=== PATIENT | female | born 1985 | race Caucasian/White ===

== ENCOUNTER 2018-08-17 12:55 | Inpatient (IN) | payer OTHER, SELFPAY ==
[2018-08-17] MEDS ORDERED: Dexamethasone 20 MG/5 ML VIAL ONE (12:58)
[2018-08-17] MEDS ORDERED: Ketorolac Tromethamine 30 MG/ML VIAL ONE ×2 (12:58→18:50)
[2018-08-17] MEDS ORDERED: PHENYLEPHRINE-NS 100 MCG/ML 10 ML SYRINGE ONE ×2 (12:58→18:50)
[2018-08-17] MEDS ORDERED: diphenhydrAMINE 50 MG/ML VIAL ONE ×3 (12:58→20:04)
[2018-08-17] MEDS ORDERED: Ondansetron HCl/PF 4 MG/2 ML Vial ONE ×2 (12:58→18:50)
[2018-08-17 13:50] VITALS: BMI 34.7
[2018-08-17 15:15] LABS: Amnisure Internal Control QC ACCEPTABLE (ACCEPTABLE); Amnisure Test No Membranes Rupture (No Rupture)
[2018-08-17] MEDS ORDERED: Promethazine HCl 25 MG/ML VIAL IM PRN ×3 (17:15→23:05)
[2018-08-17] MEDS ORDERED: Lactated Ringer's 1,000 ML IV SCH (17:15)
[2018-08-17] MEDS ORDERED: Ondansetron HCl/PF 4 MG/2 ML Vial IVP PRN ×4 (17:15→23:05)
[2018-08-17] MEDS ORDERED: Bicitra 30 ML UDCUP PO SCH (17:30)
[2018-08-17] MEDS ORDERED: CEFAZOLIN/Water 2 GM/20 ML SYRINGE SLOW IVP SCH (17:30)
[2018-08-17 17:40] LABS: Hemoglobin 11.8 g/dL (12.0-16.0); Mean Corpuscular Hemoglobin 30.2 pg (27.0-31.0); Mean Corpuscular Volume 91.5 fL (78.0-98.0); Mean Platelet Volume 9.2 fL (7.4-10.4); Platelet Count 235 thou/uL (130-400); RBC Distribution Width 14.4 % (11.5-14.5); Red Blood Cell (RBC) Count 3.92 mill/uL (4.20-5.40); White Blood Cell (WBC) Count 12.7 thou/uL (4.8-10.8)
[2018-08-17 18:19] LABS: HBSAg Index 0.19 S/CO (0-0.99); Hep B Surf Ag Non-Reactive S/CO (NonReactive); Syphilis Antibody Nonreactive (Nonreactive); Syphilis Antibody Index 0.04 S/CO (<1.00 Non-Reactive)
[2018-08-17] MEDS ORDERED: Morphine PF 1 MG/ML SYR ONE (18:49)
[2018-08-17] MEDS ORDERED: Oxytocin 10 UNITS/ML VIAL ONE (18:50)
[2018-08-17] MEDS ORDERED: Lidocaine 1% PF 5 ML VIAL ONE (18:50)
[2018-08-17] MEDS ORDERED: Bupivacaine 0.75% W/DEXTROSE 8.25% 2 ML AMP ONE (18:50)
[2018-08-17] MEDS ORDERED: Dexamethasone 4 mg/ml Vial ONE (18:50)
[2018-08-17] MEDS ORDERED: Lidocaine 2% 10 ML INJ ONE (18:55)
[2018-08-17] MEDS ORDERED: Promethazine HCl 25 MG SUPP PR PRN (20:15)
[2018-08-17] MEDS ORDERED: Ketorolac Tromethamine 30 MG/ML VIAL IVP PRN (20:15)
[2018-08-17] MEDS ORDERED: Meperidine HCl/PF 25 MG/ML VIAL SLOW IVP PRN (20:15)
[2018-08-17] MEDS ORDERED: Naloxone HCl 0.4 mg/ml Vial IVP PRN ×2 (20:15)
[2018-08-17] MEDS ORDERED: HYDROmorphone 2 MG/ML VIAL SLOW IVP PRN (20:15)
[2018-08-17] MEDS ORDERED: diphenhydrAMINE 50 MG/ML VIAL IVP PRN (20:15)
[2018-08-17] MEDS ORDERED: Communication Order-Pharmacy FS SCH (20:15)
[2018-08-17] MEDS ORDERED: Eucerin (Mineral Oil/Petrolatum,White) 30 gm Jar TOP PRN (20:15)
[2018-08-17] MEDS ORDERED: Naloxone HCl 0.4 mg/ml Vial IV PRN (20:15)
[2018-08-17] MEDS ORDERED: Bisacodyl 10 MG SUPP PR PRN (23:05)
[2018-08-17] MEDS ORDERED: diphenhydrAMINE 25 MG CAP PO PRN (23:05)
[2018-08-17] MEDS ORDERED: NS / Oxytocin 40 units/1000ml 1,000 ML IV SCH (23:05)
[2018-08-17] MEDS ORDERED: Varicella virus, LIVE 0.5 ML VIAL SC ONE (23:05)
[2018-08-17] MEDS ORDERED: Adacel (T-DAP) 0.5 ML VIAL IM ONE (23:05)
[2018-08-17] MEDS ORDERED: Lanolin Ointment 7 GM TUBE TOP PRN (23:05)
[2018-08-17] MEDS ORDERED: Measles/Mumps/Rubella 10 MCG/0.5 ML VIAL SC ONE (23:05)
[2018-08-18] MEDS: Docusate Calcium (SURFAK) 240 MG CAP PO SCH ×3 (00:04→20:00)
[2018-08-18 06:32] LABS: Hemoglobin 10.3 g/dL (12.0-16.0); Mean Corpuscular HGB CONC 31.9 g/dL (32.0-36.0); Mean Corpuscular Hemoglobin 29.2 pg (27.0-31.0); Mean Corpuscular Volume 91.5 fL (78.0-98.0); Mean Platelet Volume 9.3 fL (7.4-10.4); Platelet Count 228 thou/uL (130-400); RBC Distribution Width 14.3 % (11.5-14.5); Red Blood Cell (RBC) Count 3.54 mill/uL (4.20-5.40); White Blood Cell (WBC) Count 18.5 thou/uL (4.8-10.8)
[2018-08-18] MEDS ORDERED: HYDROcodone/Acetaminophen 5/325 mg Tablet PO PRN ×2 (08:15)
[2018-08-18] MEDS: Simethicone Chewable 80 MG TAB PO PRN ×2 (13:39→20:00)
--- NOTE | 2018-08-18 18:44 | PDOC.LDHP ---
Labor and Delivery H&P Chief complaint: scheduled section HPI: Patient is a at 37w and 4 days, who was seen in clinic earlier today and had vertually no amniotic fluid (severe oligohydramnios with ELIZABETH of 1 cm). Current gestational age (weeks): 37 Due date: 09/03/18 Grav: 2 Para: 1 Current complications: oligohydramnios Abnormal US findings: No Current medications: pre- vitamins Previous surgical history: low tranverse CS Allergies/Adverse Reactions: Allergies Allergy/AdvReac Type Severity Reaction Status Date / Time penicillin G Allergy Severe Anaphylaxis Verified 08/17/18 13:51 Social history: none - Physical Exam Vital signs reviewed and normal: yes General: NAD Heart: RRR Lungs: CTAB Abdomen: gravid Extremeties: no edema FHT: category 1 - Assessment L&D Assessment: scheduled repeat section - Plan Plan: admit to L&D, to OR for section
--- NOTE | 2018-08-18 18:46 | PDOC.PP ---
Post Progress Note Post Day #: 1 PO intake tolerated: yes Flatus: yes Ambulation: yes Vital Signs (12 hours) Temp Pulse Resp BP Pulse Ox 08/18/18 17:02 97.6 F 97 20 115/74 08/18/18 11:27 98.2 F 96 20 107/66 08/18/18 07:45 98.0 F 97 16 100/64 96 Weight Weight 184 lb - Physical Examination Cardiovascular: no m/r/g Respiratory: clear to auscultation bilaterally Abdominal: + bowel sounds Extremities: negative homans (B) Skin: CS incision dry & intact Neurological: no gross focal deficits Psychiatric: A&Ox3 Result Diagrams: 08/18/18 05:14 Additional Labs: Post Labs Blood Type A POSITIVE 08/17/18 17:29 Hep Bs Antigen Non-Reactive S/CO (NonReactive) 08/17/18 17:29 - Assessment/Plan Patient is doing well today. Vitals/Blood count stable.
[2018-08-18] MEDS: Ibuprofen 800 MG TAB PO SCH (20:01)
[2018-08-19] MEDS: Ibuprofen 800 MG TAB PO SCH ×2 (05:56→14:04)
[2018-08-19] MEDS ORDERED: Ibuprofen 800 MG TAB PO SCH (06:00)
[2018-08-19 08:15] VITALS: BP 128/78; TEMP 97.9
[2018-08-19] MEDS: Docusate Calcium (SURFAK) 240 MG CAP PO SCH (09:19)
--- NOTE | 2018-08-19 13:52 | PDOC.PP ---
Post Progress Note Post Day #: 2 PO intake tolerated: yes Flatus: yes Ambulation: yes Vital Signs (12 hours) Temp Pulse Resp BP Pulse Ox 08/19/18 08:14 97.9 F 105 H 20 128/78 99 08/19/18 08:05 99 Weight Weight 184 lb - Physical Examination General: NAD Cardiovascular: no m/r/g Respiratory: clear to auscultation bilaterally Abdominal: + bowel sounds Extremities: negative homans (B) Neurological: no gross focal deficits Psychiatric: A&Ox3 Result Diagrams: 08/18/18 05:14 Additional Labs: Post Labs Blood Type A POSITIVE 08/17/18 17:29 Hep Bs Antigen Non-Reactive S/CO (NonReactive) 08/17/18 17:29 - Assessment/Plan Patient is doing very well, desires to be discharged home today.
--- NOTE | 2018-08-19 14:45 | OP ---
DATE OF SERVICE: 08/17/2018 PREOPERATIVE DIAGNOSES: Intrauterine at 37 weeks and 4 days with severe oligohydramnios. POSTOPERATIVE DIAGNOSES: Intrauterine at 37 weeks and 4 days with severe oligohydramnios. PROCEDURE: Repeat low transverse section. FINDINGS: Viable male weighing 3585 grams or 7 pounds 14 ounces, Apgars 9 and 9. Quantitativ e blood loss 307 mL. COMPLICATIONS: None. DETAILS OF THE PROCEDURE: The patient was consented and taken back to the operating room where spina l anesthesia was found to be adequate. She was then prepped and draped in the normal sterile fashion . A time out was performed by the entire operative team. The incision was then marked with a marking pen tested using sharp pickups. An incision was then made with a scalpel. The incision was carried through the adipose tissue down to the underlying rectus fascia using both sharp dissection as well as cautery. Once the fascia was identified, it was incised in the midline and then the fascial incis ion was carried through in both lateral directions using sharp as well as cautery dissection techniqu es. Next, the superior aspect of the rectus fascia was grasped with 2 Maren clamps which was tented up and the rectus muscles were dissected off using blunt dissection as well as cautery dissection. Similarly, the inferior aspect of the fascial incision was grasped with 2 Maren clamps, tented up an d the rectus muscles were dissected off bluntly as well as sharply. Next, the rectus muscles were se parated in the midline and the peritoneum identified. The peritoneum was then carefully grasped with two hemostats and entered sharply. The peritoneal incision was extended superiorly and inferiorly a nd bladder blade was placed in the lower abdomen. At this point, the uterus was identified and the b ladder flap was then developed using pickups with teeth as well as Metzenbaum scissors in both latera l directions. The bladder flap was then dissected downwards using the paper tube machine operator's finger as well as M etzenbaum scissors. The bladder blade was replaced. The lower uterine segment was then identified a nd entered sharply using a clean scalpel. The uterine incision was then dissected downwards until th in layer of muscle remained and this was entered bluntly using a hemostat to avoid any injury to the baby. The uterine incision was then stretched using two fingers in both lateral directions. An amniotomy was performed artificially using a hemostat and the baby was delivered using fundal pres sure in a gentle fashion. Once out, the baby's mouth and nose were bulb suctioned, cord clamped and cut, and the baby was handed to waiting attendants. Next, the uterus was exteriorized, cleared of al l clots and debris and the uterine incision was repaired with #1 Monocryl in a running locking fashio n. A second suture of the same type was used to obtain complete hemostasis at the uterine incision. The bladder flap was reapproximated using 3-0 Monocryl. Next, patient's left and right adnexa were inspected and appeared to be within normal limits. The posterior cul-de-sac was blotted dry and hemo stasis assured. One more look at the uterine incision demonstrated hemostasis. Next, the uterus was replaced back within the abdomen. The peritoneum was reapproximated using 2-0 Monocryl without diff iculty. The rectus muscles were then allowed to come back together and 0 chromic was used to aid in reapproximation of the muscle as necessary. The rectus fascia was then reapproximated in a running f ashion using 0 Vicryl suture. The adipose tissue was then examined and appeared to be well approxima zoraida without any obvious separations. Finally, the skin was reapproximated with 3-0 Monocryl on a Isidro th needle without difficulty and Dermabond adhesive was applied to the skin. Once the glue was dry, the drapes were removed and the patient was transferred to an ambulatory bed where she was taken to [facility] awake and in stable condition. Sponge, lap, and needle counts were correct x3.
== END 2018-08-19 14:35 | disposition home or self-care (01) | DRG 765 ==
LOC: L&D/OP 12:55 → L&D 16:18 → 3SW 22:49
PROVIDERS: ADMIT Obstetrics & Gynecology; ATTEND Obstetrics & Gynecology
PROC: 10D00Z1 Extraction of Products of Conception, Low, Open Approach (ICD-10-PCS; principal; 2018-08-17)
DX: O34.211 Maternal care for low transverse scar from previous cesarean delivery (principal); O41.03X0 Oligohydramnios, third trimester, not applicable or unspecified; Z3A.37 37 weeks gestation of pregnancy; Z37.0 Single live birth
CPT/HCPCS: 36415; 51702; 84112; 85027; 86780; 86850; 86900; 86901; 87340; J1100; J1200; J1885; J2001; J2274; J2405; J2590; J3490

== ENCOUNTER 2020-12-26 11:17 | Outpatient (CLI) | payer OTHER ==
--- NOTE | 2020-12-26 14:28 | RAD ---
SUPINE ABDOMEN: Indications: Hernia. Abdominal pain. FINDINGS: Scattered stool and gas throughout the colon. Small bowel gas pattern unremarkable. No mass effect or abnormal calcification. IMPRESSION: Unremarkable abdominal film. POS: AGW
== END 2020-12-26 11:18 | disposition home or self-care (01) ==
LOC: BICRAD 11:17
PROVIDERS: ATTEND Specialist
DX: K42.9 Umbilical hernia without obstruction or gangrene (principal)
CPT/HCPCS: 74018

== ENCOUNTER 2021-01-09 07:09 | Day surgery (SDC) | payer OTHER ==
[2021-01-08 11:36] VITALS: BMI 31.1
[2021-01-09 08:15] LABS: #Basophils 0.1 thou/uL (0.0-0.2); #Eosinphils 0.2 thou/uL (0.0-0.7); #Lymphocytes 2.9 thou/uL (1.20-3.40); #Monocytes 0.4 thou/uL (0.11-0.59); #Neutrophils 4.4 thou/uL (1.40-6.50); %Basophils 1.3 % (0.0-1.0); %Eosinophils 2.9 % (0.0-10.0); %Lymphocytes 35.7 % (21.0-51.0); %Monocytes 4.9 % (0.0-10.0); %Neutrophils 55.2 % (42.0-75.0); Hemoglobin 13.7 g/dL (12.0-16.0); Mean Corpuscular HGB CONC 31.5 g/dL (32.0-36.0); Mean Corpuscular Hemoglobin 28.1 pg (27.0-31.0); Mean Corpuscular Volume 89.2 fL (78.0-98.0); Mean Platelet Volume 7.6 fL (7.4-10.4); Platelet Count 279 thou/uL (130-400); Red Blood Cell (RBC) Count 4.86 mill/uL (4.20-5.40)
[2021-01-09 08:20] LABS: BHCG - Serum Negative (NEGATIVE); Pregs Control Bar Appear? YES (CONTROL BAR)
[2021-01-09 08:21] LABS: Pregs Control Background? CLEAR/WHITE (CLR/WHITE)
[2021-01-09] MEDS ORDERED: XYLOCAINE 2%-EPI 1:100,000 20 ML VIAL ONE (08:43)
[2021-01-09] MEDS ORDERED: Bupivacaine 0.25% HCL 30 ML VIAL ONE (08:43)
[2021-01-09] MEDS ORDERED: Fentanyl 100 MCG/2 ML VIAL ONE ×2 (08:44→10:00)
[2021-01-09] MEDS ORDERED: Levofloxacin 500 mg/D5W 100 ml Premix Bag ONE (08:51)
[2021-01-09 08:57] LABS: SARS-CoV-2 NAA Rapid Test Not Detected (NotDetected)
[2021-01-09] MEDS ORDERED: Dexamethasone 20 MG/5 ML VIAL ONE (09:28)
[2021-01-09] MEDS ORDERED: Ketorolac Tromethamine 30 MG/ML VIAL ONE (09:28)
[2021-01-09] MEDS ORDERED: Lidocaine 1% PF 5 ML VIAL ONE ×2 (09:28)
[2021-01-09] MEDS ORDERED: Ondansetron PF 4 MG/2 ML Vial ONE (09:28)
[2021-01-09] MEDS ORDERED: PROPOFOL 200 MG/20 ML VIAL ONE (09:28)
--- NOTE | 2021-01-09 10:02 | OP ---
DATE OF PROCEDURE: 01/09/2021 PREOPERATIVE DIAGNOSIS: Umbilical hernia. PROCEDURE PERFORMED: Umbilical hernia repair with mesh. INDICATIONS: A 35-year-old female with a painful enlarging umbilical hernia. FINDINGS: There was quite a bit of omentum that had prolapsed through a relatively small opening about 1 cm, repaired with 6.4 cm mesh. DESCRIPTION OF PROCEDURE: After informed consent was obtained, patient was taken to the operating room and given general endotracheal anesthesia, placed in supine position. Abdomen was prepped and draped in the usual fashion. Local anesthesia was infiltrated subcutaneously and deep, subumbilical incision was performed. Subcu divided sharply. The hernia sac was dissected from surrounding skin circumferentially. The hernia sac was excised. I could not get it to reduce, so I had to divide the omentum between clamps and tie it with 0 Vicryl suture. This allowed me to reduce the hernia contents. The defect was fairly small, only 1 cm. A 6.4 cm round Proceed mesh was hydrated, inserted intra-abdominally. The wings were sutured to the abdominal wall with 0 Ethibond suture and then the mesh further sutured to the abdominal wall with interrupted 0 Ethibond. Hemostasis was assured. The umbilical skin was then sutured to the abdominal wall with interrupted 3-0 Vicryl to restore umbilical contour. Skin closed with interrupted 4-0 Rapide. Steri-Strips applied. Sterile bandage applied. The patient tolerated the procedure well, transferred to Recovery in good condition. Sponge and needle count verified correct x2. Job ID: [id number]
== END 2021-01-09 12:21 | disposition home or self-care (01) ==
LOC: SDC 07:09
PROVIDERS: ATTEND Surgery
PROC: 0WUF0JZ Supplement Abdominal Wall with Synthetic Substitute, Open Approach (ICD-10-PCS; principal; 2021-01-09)
DX: K42.9 Umbilical hernia without obstruction or gangrene (principal); F17.210 Nicotine dependence, cigarettes, uncomplicated; Z79.899 Other long term (current) drug therapy; Z88.0 Allergy status to penicillin
CPT/HCPCS: 36415; 84703; 85025; J1100; J1885; J1956; J2405; J2704; J3010; S0020; U0002

== ENCOUNTER 2021-08-07 10:45 | Outpatient (CLI) | payer OTHER | END 2021-08-07 10:46 | disposition home or self-care (01) | LOC: DTY/OP 10:45 | PROVIDERS: ATTEND Surgery | DX: E66.01 Morbid (severe) obesity due to excess calories (principal) | CPT/HCPCS: 97802 ==

== ENCOUNTER 2021-10-16 13:00 | Inpatient (IN) | payer OTHER ==
[2021-10-19 16:02] VITALS: BMI 34.5
[2021-10-21] MEDS ORDERED: Levofloxacin 500 mg/D5W 100 ml Premix Bag ONE (09:36)
[2021-10-21] MEDS ORDERED: Midazolam HCl 2 mg/2 ml Vial ONE (10:44)
[2021-10-21] MEDS ORDERED: Bupivacaine 0.25% HCL 30 ML VIAL ONE (11:37)
[2021-10-21] MEDS ORDERED: Lidocaine 1% w/Epinephrine 1:100K 20 ML VIAL ONE (11:37)
[2021-10-21] MEDS ORDERED: Famotidine/PF 20 mg/2ml Vial ONE (11:39)
[2021-10-21] MEDS ORDERED: Fentanyl 100 MCG/2 ML VIAL ONE ×3 (11:39→13:07)
[2021-10-21] MEDS ORDERED: Ondansetron PF 4 MG/2 ML Vial ONE (12:02)
[2021-10-21] MEDS ORDERED: Glycopyrrolate 0.2 MG/ML 5 ML SYRINGE ONE (12:02)
[2021-10-21] MEDS ORDERED: Ketorolac Tromethamine 30 MG/ML VIAL ONE (12:02)
[2021-10-21] MEDS ORDERED: Rocuronium Bromide 10 MG/ML (10ML VIAL) ONE (12:02)
[2021-10-21] MEDS ORDERED: PHENYLEPHRINE-NS 100 MCG/ML 10 ML SYRINGE ONE (12:02)
[2021-10-21] MEDS ORDERED: PROPOFOL 200 MG/20 ML VIAL ONE (12:02)
[2021-10-21] MEDS ORDERED: Dexamethasone 20 MG/5 ML VIAL ONE (12:02)
[2021-10-21] MEDS ORDERED: Meperidine HCl/PF 25 MG/ML VIAL SLOW IVP PRN (12:58)
[2021-10-21] MEDS ORDERED: Promethazine HCl 25 MG/ML VIAL IVPB PRN (12:58)
[2021-10-21] MEDS ORDERED: HYDROmorphone 2 MG/ML VIAL SLOW IVP PRN (12:58)
[2021-10-21] MEDS ORDERED: Hydrocodone-Acetamin 15 ML UDCUP PO PRN (13:05)
[2021-10-21] MEDS ORDERED: Dextrose 50% Abboject 50 ML SYRINGE SLOW IVP PRN (13:05)
[2021-10-21] MEDS ORDERED: hydrALAZINE 20 MG/ML VIAL SLOW IVP PRN (13:05)
[2021-10-21] MEDS ORDERED: diphenhydrAMINE 50 MG/ML VIAL IVP PRN ×2 (13:05→13:27)
[2021-10-21] MEDS ORDERED: Promethazine HCl 25 MG/ML VIAL IM PRN ×2 (13:05→13:27)
[2021-10-21] MEDS ORDERED: Dextrose 5% in Water 1,000 ML IV PRN (13:05)
[2021-10-21] MEDS ORDERED: Ondansetron PF 4 MG/2 ML Vial IVP PRN ×2 (13:05→13:27)
[2021-10-21] MEDS ORDERED: HYDROmorphone 2 MG/ML VIAL ONE (13:06)
[2021-10-21] MEDS ORDERED: Promethazine HCl 25 MG/ML VIAL ONE (13:07)
[2021-10-21] MEDS ORDERED: Zolpidem Tartrate 5 MG TAB PO PRN (13:27)
[2021-10-21] MEDS ORDERED: Naloxone HCl 0.4 mg/ml Vial IV PRN (13:27)
[2021-10-21] MEDS ORDERED: fentaNYL Citrate/PF 2,000 MCG in Sodium Chloride 0.9% 60 ML IV PRN (13:27)
[2021-10-21] MEDS ORDERED: diphenhydrAMINE 25 MG CAP PO PRN (13:27)
[2021-10-21] MEDS ORDERED: diphenhydrAMINE 50 MG/ML VIAL IM PRN (13:27)
[2021-10-21] MEDS ORDERED: Communication Order-Pharmacy FS SCH (13:30)
[2021-10-21] MEDS: D5 1/2 NS w/20 mEq KCL 1,000 ML IV SCH ×2 (14:34→17:14)
[2021-10-21] MEDS: Ketorolac Tromethamine 30 MG/ML VIAL IVP SCH ×2 (17:13→23:55)
[2021-10-21] MEDS ORDERED: Pantoprazole 40 MG VIAL IVP SCH (20:00)
[2021-10-22] MEDS: D5 1/2 NS w/20 mEq KCL 1,000 ML IV SCH (03:05)
[2021-10-22] MEDS: Cepastat Lozenges 1 LOZ PO PRN ×3 (03:06→06:38)
[2021-10-22] MEDS ORDERED: Hydrocodone-Acetamin 15 ML UDCUP PO PRN (06:13)
[2021-10-22] MEDS: Ketorolac Tromethamine 30 MG/ML VIAL IVP SCH ×2 (06:25→11:15)
[2021-10-22 06:41] LABS: #Lymphocytes 2.1 thou/uL (1.20-3.40); #Monocytes 0.7 thou/uL (0.11-0.59); #Neutrophils 9.7 thou/uL (1.40-6.50); %Basophils 0.1 % (0.0-1.0); %Eosinophils 0.2 % (0.0-10.0); %Lymphocytes 16.7 % (21.0-51.0); %Monocytes 5.6 % (0.0-10.0); %Neutrophils 77.4 % (42.0-75.0); Hemoglobin 11.6 g/dL (12.0-16.0); Mean Corpuscular HGB CONC 32.4 g/dL (32.0-36.0); Mean Corpuscular Hemoglobin 28.5 pg (27.0-31.0); Mean Corpuscular Volume 87.9 fL (78.0-98.0); Mean Platelet Volume 7.3 fL (7.4-10.4); Platelet Count 282 thou/uL (130-400); RBC Distribution Width 13.4 % (11.5-14.5); Red Blood Cell (RBC) Count 4.05 mill/uL (4.20-5.40); White Blood Cell (WBC) Count 12.5 thou/uL (4.8-10.8)
[2021-10-22 07:01] LABS: Anion Gap 11 mmol/L (10-20); BUN (Urea Nitrogen) 6 mg/dL (7.0-18.7); Calc. Creatinine Clearance 133 mL/min (70-130); Calcium 8.9 mg/dL (7.8-10.44); Carbon Dioxide 20 mmol/L (22-29); Chloride 112 mmol/L (98-107); Glucose 117 mg/dL (70-105); Potassium 4.2 mmol/L (3.5-5.1); Sodium 139 mmol/L (136-145)
[2021-10-22] MEDS ORDERED: Pantoprazole 40 MG VIAL IVP SCH (09:00)
[2021-10-22] MEDS ORDERED: Enoxaparin Sodium 40 MG/0.4 ML SYRINGE SC SCH (09:00)
[2021-10-22 11:38] VITALS: BP 124/85; TEMP 98.9
== END 2021-10-22 12:05 | disposition home or self-care (01) | DRG 621 ==
LOC: SURG A 10-21 08:46 → SURG B 10-21 16:22
PROVIDERS: ADMIT Surgery; ATTEND Surgery
PROC: 0DB64Z3 Excision of Stomach, Percutaneous Endoscopic Approach, Vertical (ICD-10-PCS; principal; 2021-10-21)
PROC: 0DJ08ZZ Inspection of Upper Intestinal Tract, Via Natural or Artificial Opening Endoscopic (ICD-10-PCS; 2021-10-21)
DX: E66.01 Morbid (severe) obesity due to excess calories (principal); Z68.34 Body mass index [BMI] 34.0-34.9, adult; E78.5 Hyperlipidemia, unspecified; F17.210 Nicotine dependence, cigarettes, uncomplicated; F32.A Depression, unspecified; Z79.899 Other long term (current) drug therapy
CPT/HCPCS: 36415; 80048; 85025; 88307; C1713; C9113; J1100; J1170; J1650; J1885; J1956; J2250; J2405; J2550; J2704; J3010; J3480; S0020; S0028

== ENCOUNTER 2021-10-16 16:02 | Outpatient (CLI) | payer OTHER ==
[2021-10-16 18:00] LABS: #Basophils 0.1 10x3/uL (0.0-0.2); #Eosinphils 0.2 10x3/uL (0.0-0.5); #Monocytes 0.4 10x3/uL (0.0-1.1); #Neutrophils 6.3 10x3/uL (1.5-8.4); %Basophils 0.5 % (0.0-2.0); %Eosinophils 2.1 % (0.0-6.0); %Lymphocytes 27.3 % (18.0-47.0); %Monocytes 4.5 % (0.0-10.0); %Neutrophils 65.4 % (40.0-75.0); Hemoglobin 12.3 g/dL (12.0-15.5); Mean Corpuscular HGB CONC 30.7 g/dL (32.0-36.0); Mean Corpuscular Hemoglobin 27.2 pg (27.0-33.0); Mean Corpuscular Volume 88.7 fl (81.6-98.3); Mean Platelet Volume 10.2 fl (7.4-10.4); Platelet Count 336 10x3/uL (150-450); RBC Distribution Width 14.2 % (11.5-14.5); Red Blood Cell (RBC) Count 4.52 10x6/uL (3.90-5.03); White Blood Cell (WBC) Count 9.6 10x3/uL (3.5-10.5)
[2021-10-16 18:08] LABS: BHCG - Serum Negative (NEGATIVE); Pregs Control Background? CLEAR/WHITE (CLR/WHITE); Pregs Control Bar Appear? YES (CONTROL BAR)
[2021-10-16 18:16] LABS: ALT (SGPT) 19 U/L (8-55); AST (SGOT) 18 U/L (5-34); Albumin 4.4 g/dL (3.5-5.0); Alkaline Phosphatase 84 U/L (40-110); Anion Gap 13 mmol/L (10-20); BUN (Urea Nitrogen) 15 mg/dL (7.0-18.7); Bilirubin, Total 0.3 mg/dL (0.2-1.2); Calc. Creatinine Clearance 0 mL/min (70-130); Calcium 9.4 mg/dL (7.8-10.44); Carbon Dioxide 25 mmol/L (22-29); Chloride 107 mmol/L (98-107); Globulin 2.7 g/dL (2.4-3.5); Glucose 82 mg/dL (70-105); Protein, Total 7.1 g/dL (6.0-8.3); Sodium 141 mmol/L (136-145)
[2021-10-17 09:20] LABS: Hemoglobin A1c 5.4 % (4.0-6.0)
[2021-10-17 16:26] LABS: SARS-CoV-2 PCR by NAA Not Detected (NotDetected)
== END 2021-10-16 16:03 | disposition home or self-care (01) ==
LOC: LABBT 16:02
PROVIDERS: ATTEND Surgery
DX: Z01.818 Encounter for other preprocedural examination (principal); Z20.822 Contact with and (suspected) exposure to COVID-19
CPT/HCPCS: 71046; 80053; 83036; 84703; 85025; 93005; 93010; U0003; U0005